=== PATIENT | male | born 1985 | race Caucasian/White ===

== ENCOUNTER 2022-02-06 20:05 | Emergency (ER) | payer MEDICAID ==
--- NOTE | 2022-02-06 20:09 | ERPHSYRPT ---
- History of Present Illness Time Seen by Provider: 02/06/22 20:25 Source: patient Exam Limitations: no limitations Physician History: This is a 36-year-old white male who has been "sick" for approximately 3 days. The symptoms include cough congestion sore throat and loss of voice. He is now having greenish sputum and nasal drainage. He has had fever at home. He has no neck pain. Occurred: days ago (3) Method of Injury: other (No injury) Quality: aching Severity of Pain-Max: mild Severity of Pain-Current: mild Modifying Factors: Improves With: nothing Associated Symptoms: other (Cough sore throat fevers patient afebrile now), No neck pain Allergies/Adverse Reactions: cefaclor [From Ceclor] Allergy (Mild, Verified 10/15/11 17:42) shellfish derived Allergy (Verified 02/06/22 20:19) Home Medications: No Home Meds 10/15/11 [History] Hx Tetanus, Diphtheria Vaccination/Date Given: No Hx Influenza Vaccination/Date Given: No Hx Pneumococcal Vaccination/Date Given: No Travel Risk - International Travel Have you traveled outside of the country in past 3 weeks: No - Coronavirus Screening Are you exhibiting any of the following symptoms?: Yes Symptoms: Fever, Cough: New Onset, Headaches/Body Aches/Fatigue - Review of Systems Constitutional: No Symptoms Eyes: No Symptoms Ears, Nose, & Throat: Nose Congestion, Nose Discharge, Throat Pain Respiratory: Cough Cardiac: No Symptoms Abdominal/Gastrointestinal: No Symptoms Genitourinary Symptoms: No Symptoms Musculoskeletal: Arthralgias, Myalgias Skin: No Symptoms Neurological: No Symptoms Psychological: No Symptoms Endocrine: No Symptoms Hematologic/Lymphatic: No Symptoms Immunological/Allergic: No Symptoms All Other Systems: Reviewed and Negative - Past Medical History Pertinent Past Medical History: No (healthy) - Past Surgical History Past Surgical History: Yes Gastrointestinal: Appendectomy Other Surgical History: ABSCESS 1 WK POST APPY. - Social History Smoking Status: Never smoker Drug Use: none Patient Lives Alone: No - Nursing Vital Signs Nursing Vital Signs: Initial Vital Signs Temperature 97.8 F 02/06/22 20:08 Pulse Rate 68 02/06/22 20:08 Respiratory Rate 18 02/06/22 20:08 Blood Pressure 131/85 02/06/22 20:08 O2 Sat by Pulse Oximetry 97 02/06/22 20:08 Pain Scale Pain Intensity 0 - Physical Exam General Appearance: no apparent distress, alert, anxiety Eyes, Ears, Nose, Throat Exam: normal ENT inspection, moist mucous membranes Neck Exam: normal inspection, non-tender, supple, full range of motion Cardiovascular/Respiratory Exam: chest non-tender, no respiratory distress Abdominal Exam: non-tender Back Exam: normal inspection Shoulder Exam: normal inspection Elbow/Forearm Exam: normal inspection Wrist Exam: normal inspection Hand Exam: normal inspection Skin Exam: normal color, warm, dry SpO2 Interpretation: normal O2 Delivery: Room Air - Course Nursing assessment & vital signs reviewed: Yes Ordered Tests: Medication Summary Discontinued Medications Generic Name Dose Route Start Last Admin Trade Name Freq PRN Reason Stop Dose Admin Hydrocodone Bitart/Acetaminophen 10 ml 02/06/22 20:31 02/06/22 20:36 Hydrocodone/Acetaminophen 5 Ml Udcup PO 02/06/22 20:32 10 ml STAT STA Administration Hydrocodone Bitart/Acetaminophen Confirm 02/06/22 20:35 Hydrocodone/Acetaminophen 5 Ml Udcup Administered 02/06/22 20:36 Dose 10 ml .ROUTE .STK-MED ONE Sodium Chloride 500 mls @ 100 mls/hr 02/06/22 20:11 02/06/22 20:13 Sodium Chloride 0.9% 500 Ml IV 02/07/22 01:10 Not Given .Q5H ONE Prednisone 20 mg 02/06/22 20:31 02/06/22 20:37 Prednisone 20 Mg Tablet PO 02/06/22 20:32 20 mg STAT ONE Administration Prednisone Confirm 02/06/22 20:35 Prednisone 20 Mg Tablet Administered 02/06/22 20:36 Dose 20 mg .ROUTE .STK-MED ONE Lab/Rad Data: Laboratory Results 02/06/22 Range/Units 20:38 Influenza Type A Ag NEGATIVE (NEGATIVE) Influenza Type B Ag NEGATIVE (NEGATIVE) RSV (PCR) NEGATIVE (Negative) SARS-CoV-2 (PCR) NEGATIVE (NEGATIVE) Group A Strep Antibody NOT DETECTED (NEGATIVE) - Progress Progress: improved, pain not gone completely Counseled pt/family regarding: lab results, diagnosis, need for follow-up - Departure Departure Disposition: Home Clinical Impression: Upper respiratory infection Condition: Stable Critical Care Time: No Referrals: BEULAH SHARMA [Primary Care Provider] - Follow up/PCP as directed Additional Instructions: Take your medication as prescribed. Follow-up with your primary care provider for further evaluation management. Prescriptions: Hydrocodone/Acetaminophen [Hydrocodone-Acetamn 7.5-325/15] 10 ml PO Q8H PRN PRN #120 ml MDD 30 ml PRN Reason: Cough Prednisone 10 mg [Deltasone 10 mg] 10 mg PO TID #12 tablet Azithromycin 250 mg [Zithromax 250 MG TABLET] 250 mg PO ZPACK #6 tablet
[2022-02-06] MEDS ORDERED: Sodium Chloride 0.9% 500 ML 500 ML IV ONE (20:11)
[2022-02-06] MEDS ORDERED: DELTASONE 20 MG PO ONE (20:31)
[2022-02-06] MEDS ORDERED: HYDROCODONE-ACETAMIN 2.5-108/5 ML SOLUTION PO STA ×2 (20:31→21:25)
[2022-02-06] MEDS ORDERED: HYDROCODONE-ACETAMIN 2.5-108/5 ML SOLUTION ONE ×2 (20:35→21:28)
[2022-02-06] MEDS ORDERED: DELTASONE 20 MG ONE (20:35)
[2022-02-06 21:05] LABS: Group A Strep NOT DETECTED (NEGATIVE)
[2022-02-06 21:15] VITALS: BP 120/69
[2022-02-06 21:16] LABS: INFLUENZA A NEGATIVE (NEGATIVE); INFLUENZA B NEGATIVE (NEGATIVE); RESPIRATORY SYNCTIAL VIRUS NEGATIVE (Negative); SARS-CoV-2 Xpert Express NEGATIVE (NEGATIVE)
[2022-02-06 21:47] VITALS: PULSE 76; O2SAT 97
== END 2022-02-06 21:47 | disposition home or self-care (01) ==
LOC: ED 20:05
DX: J06.9 Acute upper respiratory infection, unspecified (principal); R05.1 Acute cough; R09.81 Nasal congestion; J02.9 Acute pharyngitis, unspecified; Z79.891 Long term (current) use of opiate analgesic; Z79.52 Long term (current) use of systemic steroids
CPT/HCPCS: 0241U; 87651; 99283; A9270-GY